=== PATIENT | female | born 1970 | race Caucasian/White ===

== ENCOUNTER → 2016-09-15 | Outpatient (CLI) | payer BC ==
[~2016-09-15] MED LIST: CA C1TAB81 PO; GLAT20KI2 IM; MULT-806 PO; [UNRECOGNIZED DRUG - CODE] PO
== END ==
LOC: WC.BC 14:50
DX: Z12.31 Encounter for screening mammogram for malignant neoplasm of breast (principal); N64.59 Other signs and symptoms in breast
CPT/HCPCS: 77063; G0202